=== PATIENT | female | born 1945 | race Caucasian/White ===

== ENCOUNTER → 2023-05-14 | Outpatient (BNV) | payer MEDICARE, MEDICAID, SELFPAY | PROVIDERS: PCP Internal Medicine; Visit Provider Internal Medicine Nephrology | DX: N18.6 End stage renal disease (principal) | CPT/HCPCS: 90961 ==

== ENCOUNTER → 2023-06-14 | Outpatient (BNV) | payer MEDICARE, MEDICAID, SELFPAY | PROVIDERS: PCP Internal Medicine; Visit Provider Internal Medicine Nephrology | DX: N18.6 End stage renal disease (principal) | CPT/HCPCS: 90961 ==

== ENCOUNTER → 2023-07-13 | Outpatient (BNV) | payer MEDICARE, MEDICAID, SELFPAY | PROVIDERS: PCP Internal Medicine; Visit Provider Internal Medicine Nephrology | DX: N18.6 End stage renal disease (principal) | CPT/HCPCS: 90961 ==

== ENCOUNTER → 2023-08-13 | Outpatient (BNV) | payer MEDICARE, MEDICAID, SELFPAY | PROVIDERS: PCP Internal Medicine; Visit Provider Internal Medicine Nephrology | DX: N18.6 End stage renal disease (principal) | CPT/HCPCS: 90961 ==

== ENCOUNTER → 2023-09-12 | Outpatient (BNV) | payer MEDICARE, MEDICAID, SELFPAY | PROVIDERS: PCP Internal Medicine; Visit Provider Internal Medicine Nephrology | DX: N18.6 End stage renal disease (principal) | CPT/HCPCS: 90961 ==

== ENCOUNTER → 2023-10-13 | Outpatient (BNV) | payer MEDICARE, MEDICAID, SELFPAY | PROVIDERS: PCP Internal Medicine; Visit Provider Internal Medicine Nephrology | DX: N18.6 End stage renal disease (principal) | CPT/HCPCS: 90961 ==

== ENCOUNTER → 2023-11-12 | Outpatient (BNV) | payer MEDICARE, MEDICAID, SELFPAY | PROVIDERS: PCP Internal Medicine; Visit Provider Internal Medicine Nephrology | DX: N18.6 End stage renal disease (principal) | CPT/HCPCS: 90962 ==

== ENCOUNTER → 2023-12-13 | Outpatient (BNV) | payer MEDICARE, MEDICAID, SELFPAY | PROVIDERS: PCP Internal Medicine; Visit Provider Internal Medicine Nephrology | DX: N18.6 End stage renal disease (principal) | CPT/HCPCS: 90961 ==

== ENCOUNTER → 2024-01-13 | Outpatient (BNV) | payer MEDICARE, MEDICAID, SELFPAY | PROVIDERS: PCP Internal Medicine; Visit Provider Internal Medicine Nephrology | DX: N18.6 End stage renal disease (principal) | CPT/HCPCS: 90961 ==

== ENCOUNTER → 2024-02-12 | Outpatient (BNV) | payer MEDICARE, MEDICAID, SELFPAY | PROVIDERS: PCP Internal Medicine; Visit Provider Internal Medicine Nephrology | DX: N18.6 End stage renal disease (principal) | CPT/HCPCS: 90960 ==

== ENCOUNTER → 2024-03-14 | Outpatient (BNV) | payer MEDICARE, MEDICAID, SELFPAY | PROVIDERS: PCP Internal Medicine; Visit Provider Internal Medicine Nephrology | DX: N18.6 End stage renal disease (principal) | CPT/HCPCS: 90962 ==

== ENCOUNTER → 2024-04-13 | Outpatient (BNV) | payer MEDICARE, MEDICAID, SELFPAY | PROVIDERS: PCP Internal Medicine; Visit Provider Internal Medicine Nephrology | DX: N18.6 End stage renal disease (principal) | CPT/HCPCS: 90961 ==

== ENCOUNTER → 2024-05-14 | Outpatient (BNV) | payer MEDICARE, MEDICAID, SELFPAY | PROVIDERS: PCP Internal Medicine; Visit Provider Internal Medicine Nephrology | DX: N18.6 End stage renal disease (principal) | CPT/HCPCS: 90961 ==

== ENCOUNTER → 2024-06-14 | Outpatient (BNV) | payer MEDICARE, MEDICAID, SELFPAY | PROVIDERS: PCP Internal Medicine; Visit Provider Internal Medicine Nephrology | DX: N18.6 End stage renal disease (principal) | CPT/HCPCS: 90961 ==

== ENCOUNTER → 2024-07-12 | Outpatient (BNV) | payer MEDICARE, MEDICAID, SELFPAY | PROVIDERS: PCP Internal Medicine; Visit Provider Internal Medicine Nephrology | DX: N18.6 End stage renal disease (principal) | CPT/HCPCS: 90961 ==

== ENCOUNTER → 2024-08-12 | Outpatient (BNV) | payer MEDICARE, MEDICAID, SELFPAY | PROVIDERS: PCP Internal Medicine; Visit Provider Internal Medicine Nephrology | DX: N18.6 End stage renal disease (principal) | CPT/HCPCS: 90962 ==

== ENCOUNTER → 2024-09-11 | Outpatient (BNV) | payer MEDICARE, MEDICAID, SELFPAY | PROVIDERS: PCP Internal Medicine; Visit Provider Internal Medicine Nephrology | DX: N18.6 End stage renal disease (principal) | CPT/HCPCS: 90961 ==

== ENCOUNTER → 2024-12-12 23:59 | Outpatient (BNV) | payer MEDICARE, MEDICAID, SELFPAY | PROVIDERS: PCP Internal Medicine; Visit Provider Internal Medicine Nephrology | DX: N18.6 End stage renal disease (principal) | CPT/HCPCS: 90962 ==

== ENCOUNTER → 2025-01-12 23:59 | Outpatient (BNV) | payer MEDICARE, MEDICAID, SELFPAY | PROVIDERS: PCP Internal Medicine; Visit Provider Internal Medicine Nephrology | DX: N18.6 End stage renal disease (principal) | CPT/HCPCS: 90961 ==

== ENCOUNTER → 2025-02-11 23:59 | Outpatient (BNV) | payer MEDICARE, MEDICAID, SELFPAY | PROVIDERS: PCP Internal Medicine; Visit Provider Internal Medicine Nephrology | DX: N18.6 End stage renal disease (principal) | CPT/HCPCS: 90961 ==

== ENCOUNTER → 2025-04-13 23:59 | Outpatient (BNV) | payer MEDICARE, MEDICAID, SELFPAY | PROVIDERS: PCP Internal Medicine; Visit Provider Internal Medicine Nephrology | DX: N18.6 End stage renal disease (principal) | CPT/HCPCS: 90960 ==